=== PATIENT | female | born 1980 | race Caucasian/White ===

== ENCOUNTER 2022-11-17 05:13 | Inpatient (IN) ==
--- NOTE | 2022-11-13 10:18 | Anesthesiology Consultation ---
Date of Service November 13, 2022 Assessment & Plan (1) Encounter for pre-operative examination: Plan - COVID screening: Per clinical assessment manager on 11/13/2022: Travel screen negative, no known COVID-19 positive contacts or current COVID-19 related symptoms in past 2 weeks. To surgeon's discretion if preop COVID testing is needed. 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 History Surgery Operation Date: 11/17/22 09:00 Proposed Procedures p Section in LD (Delivery of Baby Through Abdominal Incision) - Lory Bonilla MD, FACOG s Bilateral Tubal Ligation - Lory Bonilla MD, FACOG Height/Weight Height: 5 ft 7 in Weight: 95.254 kg Allergies Allergy/AdvReac Type Severity Reaction Status Date / Time azithromycin Allergy Intermediate Rash Verified 11/13/22 09:48 Cipro Allergy Intermediate rash Verified 08/28/15 05:02 ciprofloxacin Allergy Intermediate rash Verified 11/13/22 09:48 Penicillins Allergy Intermediate rash Verified 11/13/22 09:48 Sulfa (Sulfonamide Allergy Intermediate SHORTNESS Verified 11/13/22 09:48 Antibiotics) OF BREATH Medications Home Medications Medication Instructions Recorded Confirmed Last Taken adalimumab 40 mg/0.8 mL See Rx Instructions subcut .COMPLEX 12/07/20 11/13/22 10/23/22 subcutaneous syringe kit (Humira) montelukast 10 mg tablet 10 mg PO QPM 04/13/22 11/13/22 10/24/22 (Singulair) prenat.vits,alli,[id number]-[id number] 1 tab PO QPM 04/18/22 11/13/22 10/24/22 aspirin 81 mg tablet,delayed 81 mg PO QPM 10/25/22 11/13/22 10/24/22 release levothyroxine 75 mcg tablet 75 mcg PO QPM 10/25/22 11/13/22 10/24/22 Past Medical History Medical History (Updated 11/13/22 @ 10:17 by Breanna Houston PA-C) Anxiety Exercise-induced asthma History of pre-eclampsia Hypothyroidism Pre-eclampsia in third trimester Psoriatic arthritis Rheumatoid arthritis noted in OB 11/08 records Past Family History Family History Mother H/O uterine leiomyoma Hypertension Grandmother (Maternal) H/O uterine leiomyoma Hypertension Grandfather (Paternal) Prostate cancer Colorectal cancer Brother Hypertension Denies family history of Ovarian cancer Breast cancer Past Surgical History Surgical History H/O colposcopy with cervical biopsy 2005 H/O myomectomy open S/P Social History Smoking Status: Never smoker Do You Dip or Chew Tobacco: No Hx Alcohol Use: No Hx Substance Use: No substance use type: does not use Lab Results Anesthesia Preop Results Results Anesthesia Widget: WBC 12.18 K/ul (4.8-10.8) H 10/05/22 Hgb 12.2 g/dl (12.0-16.0) 10/05/22 Hct 35.0 % (37.0-47.0) L 10/05/22 Plt 241 K/uL (130-400) 10/05/22 Na 136 mmol/L (136-145) 10/05/22 K 3.8 mmol/L (3.5-5.1) 10/05/22 Cl 106 mmol/L (98-107) 10/05/22 CO2 24 mmol/L (21-32) 10/05/22 BUN 3 mg/dl (6-23) L 10/05/22 Creat 0.60 mg/dl (0.6-1.2) 10/05/22 Glucose Level 85 mg/dl (70-99(Fasting)) 10/05/22 TSH 2.157 uIu/ml (0.300-4.500) 10/26/22
--- NOTE | 2022-11-16 15:41 | History & Physical Report ---
Date of Service November 16, 2022 Assessment & Plan (1) Supervision of elderly multigravida: Plan: Patient is a 42-year-old multiparous female who presents for repeat section because of prior myomectomy at 37 weeks gestation. She is requesting permanent sterilization with her section. Bilateral salpingectomy will be performed. The procedures and the risks were reviewed with the patient and her and all the questions were answered to their satisfaction and they are willing to proceed. History of Present Illness Primary Care Provider: Dimple Ruiz Patient is a 42-year-old 7 para 1-0-5-1 female who presents at 37 weeks for repeat section. Her first section was done at 36 weeks for severe preeclampsia and history of prior myomectomy requiring section for delivery. She is now presenting for repeat section at 37 weeks. 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 testing has been reassuring blood pressure has been normal during this . Patient is also requesting permanent sterilization and will undergo a bilateral salpingectomy with a section. Allergies Allergy/AdvReac Type Severity Reaction Status Date / Time azithromycin Allergy Intermediate Rash Verified 11/16/22 08:20 Cipro Allergy Intermediate rash Verified 08/28/15 05:02 ciprofloxacin Allergy Intermediate rash Verified 11/16/22 08:20 Penicillins Allergy Intermediate rash Verified 11/16/22 08:20 Sulfa (Sulfonamide Allergy Intermediate SHORTNESS Verified 11/16/22 08:20 Antibiotics) OF BREATH Home Medications Medication Instructions Recorded Confirmed Type adalimumab 40 mg/0.8 mL See Rx Instructions subcut .COMPLEX 12/07/20 11/16/22 History subcutaneous syringe kit (Humira) montelukast 10 mg tablet 10 mg PO QPM 04/13/22 11/16/22 History (Singulair) prenat.vits,alli,iuw-kvzf-[id number] 1 tab PO QPM 04/18/22 11/16/22 History aspirin 81 mg tablet,delayed 81 mg PO QPM 10/25/22 11/16/22 History release levothyroxine 75 mcg tablet 75 mcg PO QPM 10/25/22 11/16/22 History Patient History Medical History (Updated 11/13/22 @ 10:17 by Breanna Houston PA-C) Anxiety Exercise-induced asthma History of pre-eclampsia Hypothyroidism Pre-eclampsia in third trimester Psoriatic arthritis Rheumatoid arthritis noted in OB 11/08 records Surgical History H/O colposcopy with cervical biopsy 2005 H/O myomectomy open S/P Family History Mother H/O uterine leiomyoma Hypertension Grandmother (Maternal) H/O uterine leiomyoma Hypertension Grandfather (Paternal) Prostate cancer Colorectal cancer Brother Hypertension Denies family history of Ovarian cancer Breast cancer Social History Smoking Status: Never smoker Second Hand Exposure: No; Do You Dip or Chew Tobacco: No; Hx Alcohol Use: No Hx Substance Use: No Preferred Language: Kyrgyz Communication Ability: Effective Streetcar Operator Required: No Beliefs That Will Affect Care: None marital status: Single marital status details: Jones (44) [phone] Current Living Situation: Significant Other Current Living Situation Comment: lives with fob, daughter, 2 dogs, 1 cat, fob to change litter. 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 Feels Safe at Home: Yes Assistive Devices: Contacts and Glasses Review of Systems All systems reviewed & are unremarkable except as noted in HPI & below Physical Exam Constitutional: WD/WN, vitals as above Respiratory: normal respiratory effort, lungs clear to auscultation Cardiovascular: RRR, no murmur, no edema Chest (Breasts): normal inspection/palpation of breasts Psychiatric: A+Ox3, euthymic affect Genitourinary: OB Exam Abdomen: + vertex, + estimated weight (6-7 pounds) and + irregular contractions OB Exam Monitor Tracing: + external FHT monitor used, + external uterine monitor used, + category I and + normal FHT variability Coding Level of Care Code None Diagnoses Supervision of elderly multigravida O09.120
[2022-11-17] MEDS ORDERED: LACTATED RINGER'S 1,000 ML IV SCH ×2 (05:30→09:15)
[2022-11-17] MEDS ORDERED: CITRIC ACID/SODIUM CITRATE 15 ML UDC PO SCH (06:00)
[2022-11-17] MEDS ORDERED: ceFAZolin 2000MG 2,000 MG/15 ML SYR IV SCH (06:00)
[2022-11-17 06:08] LABS: Basophils # (auto) 0.03 K/uL (0-0.2); Basophils % (auto) 0.2 %; Eosinophils # (auto) 0.08 K/uL (0-0.50); Eosinophils % (auto) 0.6 %; Hematocrit (blood only) 35.8 % (37.0-47.0); Hemoglobin 12.4 g/dl (12.0-16.0); Immature Granulocytes # (auto) 0.12 K/uL (0.01-0.20); Immature Granulocytes % (auto) 0.8 %; Lymphocytes # (auto) 2.47 K/uL (1.2-3.4); Lymphocytes % (auto) 17.2 %; Mean Corpuscular Hemoglobin 29.6 pg (25.0-34.0); Mean Corpuscular Hgb Conc 34.6 g/dL (32.0-36.0); Mean Corpuscular Volume 85.4 fL (80.0-100.0); Mean Platelet Volume 11.6 fL (9.4-12.4); Monocytes # (auto) 0.81 K/uL (0.11-0.59); Monocytes % (auto) 5.7 %; Neutrophils # (auto) 10.81 K/uL (1.40-6.50); Neutrophils % (auto) 75.5 %; Platelet Count 248 K/uL (130-400); RDW Coefficient of Variation 13.2 % (11.5-14.5); Red Blood Count 4.19 M/uL (4.20-5.40); White Blood Count 14.32 K/ul (4.8-10.8)
[2022-11-17] MEDS ORDERED: MoRPHine SULFATE PF 1 MG/ML 10 ML AMP/VIAL ONE (07:33)
--- NOTE | 2022-11-17 07:33 | History & Physical Bridge Note ---
Date of Service November 17, 2022 History & Physical Bridge Note I have examined the patient, reviewed the History & Physical and in the interval since the performance of the History & Physical I have noted the following changes of clinical significance: no changes noted
[2022-11-17] MEDS ORDERED: MIDAZOLAM HCL 1 MG/ML 2ML VIAL ONE (08:02)
[2022-11-17] MEDS ORDERED: fentaNYL citrate PF 100 MCG/2 ML VIAL ONE (08:02)
[2022-11-17] MEDS ORDERED: PHENYLEPHRINE 100MCG/ML 5ML SYR ONE (08:16)
[2022-11-17] MEDS ORDERED: KETOROLAC 30 MG/ML VIAL ONE (08:16)
[2022-11-17] MEDS ORDERED: ONDANSETRON INJ 2 MG/ML 2 ML VIAL ONE (08:16)
--- NOTE | 2022-11-17 08:58 | Post Operative Brief Note ---
PG Immediate Post Op with CF Date of Surgery November 17, 2022 Pre & Post Diagnosis Operation Date: 11/17/22 07:30 Pre-Op Diagnosis: 1. Repeat section 2. Prior Myomectomy 3. Request for permanent sterilization 4. Bilateral salpingectomy Post-Op Diagnosis: Same I identified the patient and participated in the time-out.: Yes Procedure Operation Date: 11/17/22 07:30 Actual Procedures p Section in LD (Delivery of Baby Through Abdominal Incision) with the of a live female child at 0759. - Lory Bonilla MD, FACOG s Bilateral Tubal Ligation - Lory Bonilla MD, FACOG Surgeon Lory Bonilla MD, FACOG Ctc Operator Floresita No DO Estimated Blood Loss 600 Findings Consistent with Post-Op Diagnosis Specimens Specimen Description: A: Placenta-exam B: Cord Blood C: Right fallopian tube D: Left fallopian tube Drains Roberts Catheter (roberts cath placed after spinal; clear yellow urine noted upon insertion. ) Anesthesia Type Spinal Complications none Disposition Accompanied Patient To Recovery: Yes
[2022-11-17] MEDS ORDERED: ONDANSETRON INJ 2 MG/ML 2 ML VIAL IV PRN ×2 (09:04→09:09)
[2022-11-17] MEDS ORDERED: DIPHTHERIA/TETANUS/PERTUSSIS Vaccine (Tdap, Age 7+yrs) 0.5mL SYR/VL IM ONE (09:04)
[2022-11-17] MEDS ORDERED: SENNA 8.6 MG TAB PO PRN (09:04)
[2022-11-17] MEDS ORDERED: MAGNESIUM HYDROXIDE SUSP 30 ML UDC PO PRN (09:04)
[2022-11-17] MEDS ORDERED: BENZOCAINE 20% AER SPR 82.5 GM CAN EXT PRN (09:04)
[2022-11-17] MEDS ORDERED: HYDROCORTISONE ACETATE 25 MG SUPP PR PRN (09:04)
[2022-11-17] MEDS ORDERED: MoRPHine SULFATE 2 MG/ML CARP IV PRN (09:09)
[2022-11-17] MEDS ORDERED: NALBUPHINE HCL INJ 10 MG/ML AMP IV PRN (09:09)
[2022-11-17] MEDS ORDERED: MoRPHine SULFATE PF 1 MG/ML 10 ML AMP/VIAL INT SPINAL ONE (09:09)
[2022-11-17] MEDS ORDERED: HYDROmorphone INJ 0.5 MG/0.5 ML SYR IV PRN (09:09)
[2022-11-17] MEDS ORDERED: diphenhydrAMINE 50 MG/ML VIAL IV PRN (09:09)
[2022-11-17] MEDS ORDERED: NALOXONE HCL 1 MG in SODIUM CHLORIDE 0.9% 1000ML 1,000 ML IV PRN (09:09)
[2022-11-17] MEDS ORDERED: LACTATED RINGER'S 500 ML IV PRN (09:09)
[2022-11-17] MEDS ORDERED: MEPERIDINE HCL 25 MG/ML CARP/VIAL IV PRN (09:09)
[2022-11-17] MEDS ORDERED: NALOXONE HCL 0.08 MG in SYRINGE 1.8 ML IV PRN (09:09)
[2022-11-17] MEDS ORDERED: NALOXONE HCL 0.4 MG/1 ML VIAL/CARP IV PRN (09:09)
[2022-11-17] MEDS ORDERED: ePHEDrine sulfate 50 MG/ML AMP IV PRN (09:09)
[2022-11-17] MEDS ORDERED: PROMETHAZINE HCL 6.25 MG in SODIUM CHLORIDE 0.9% 50 ML IV PRN (09:09)
[2022-11-17] MEDS ORDERED: SODIUM CHLORIDE 0.9% 1000ML 1,000 ML IV SCH (09:15)
[2022-11-17] MEDS ORDERED: DC INTRASPINAL MORPHINE SCH (09:15)
[2022-11-17] MEDS ORDERED: NO NARCOTICS OR SEDATIVES SCH (09:15)
--- NOTE | 2022-11-17 09:21 | Anesthesiology Progress Note ---
Date of Service November 17, 2022 Anesthesia Post Procedure Vital Signs Vital Signs: Temp Pulse Resp BP Pulse Ox 11/17/22 09:20 92 H 100 11/17/22 09:15 95 H 100 11/17/22 09:14 95 H 114/69 11/17/22 09:10 98 H 100 11/17/22 09:05 96 H 100 11/17/22 09:03 90 122/76 11/17/22 09:00 96 H 100 11/17/22 05:50 107 H 124/90 11/17/22 05:42 37.1 C 18 Transfer of Care Handoff Completed per policy Notes Mental Status: alert / awake / arousable Nausea / Vomiting: adequately controlled Pain: adequately controlled Airway Patency, RR, SpO2: stable & adequate BP & HR: stable & adequate Hydration State: stable & adequate Neuraxial Anesthesia: was administered and sensory block is resolving Anesthetic Complications: no major complications apparent and Pt Satisfied with anesthetic care
--- NOTE | 2022-11-17 09:29 | Operative Report ---
PG Post Operative Report Pre & Post Diagnosis Operation Date: 11/17/22 07:30 Pre-Op Diagnosis: 1. Repeat section 2. Prior Myomectomy 3. Request for permanent sterilization 4. Bilateral salpingectomy Post-Op Diagnosis: Same I identified the patient and participated in the time-out.: Yes Procedure Operation Date: 11/17/22 07:30 Actual Procedures p Section in LD (Delivery of Baby Through Abdominal Incision) with the of a live female child at 0759. - Lory Bonilla MD, FACOG s Bilateral Tubal Ligation - Lory Bonilla MD, FACOG Surgeon Lory Bonilla MD, FACOG Drug Abuse Program Coordinator Floresita No DO Estimated Blood Loss 600 Findings Consistent with Post-Op Diagnosis Bilateral ovaries and fallopian tubes were grossly normal. Uterus was gravid and consistent with a term in size. There is no evidence of uterine fibroids. Specimens placenta to exam - history of vanishing twin at 10 weeks Drains Mitchell to straight drainage- clear urine at end of the case Anesthesia Type Spinal Complications none Disposition Accompanied Patient To Recovery: Yes Indications Patient is a 42-year-old 7 para 1-0-5-1 who presents at 39+ weeks for repeat section and bilateral salpingectomy. Her first section was done because of severe preeclampsia and prior myomectomy. Patient is requesting permanent sterilization because of normal to parity and unwanted fertility. Description of Procedure After the patient received adequate subarachnoid block she was prepped and draped in usual sterile fashion. A low transverse skin incision was made with a scalpel, and carried to the fascia with the same scalpel. The fascial incision was then extended transversely with Parkinson scissors. The edges of the fascia were then grasped with Dedrick clamps and the underlying rectus muscles bluntly sharply dissected off of the overlying fascia. The rectus muscles were then bluntly divided along the midline, and the underlying peritoneum elevated and entered sharply with Metzenbaum scissors. The bladder was then taken down off the anterior surface of the uterus and placed behind the bladder blade. The lower uterine segment was then entered with a scalpel to the level of the membranes which were ruptured for clear fluid. The incision was then extended transversely. The was taken out of the pelvis and the vertex presentation with the assistance of the vacuum to deliver the head through the uterine incision. Moderate fundal pressure was also used to facilitate delivery of the head and then the shoulders. The rest of the infant then delivered easily and was vigorous crying and moving all 4 limbs. The cord was then clamped and cut, and the female infant handed off to Dr. Rosario who was in attendance as dry lumber grader. The placenta was then expressed intact with a three-vessel cord. After cord blood was obtained. The uterus was then exteriorized and covered a clean lap sponge. Uterine cavity was then explored and found to be free of any retained tissue or membranes. The uterus was then closed in 2 layers in a running locking imbricating fashion with 0 Monocryl. Hemostasis was noted to be excellent. Attention was then turned to the tubal. The LigaSure device was used to remove the right fallopian tube to the level of the cornua. The left fallopian tube was then also removed with the LigaSure device to the level of the cornua. Hemostasis was noted to be excellent bilater ally. After irrigating the posterior cul-de-sac for small amount of blood, the uterus was then gently placed back in the abdominal cavity. Bleeding along the bladder flap was secured with the Bovie. The gutters were explored and found to be free of any clot or fluid. The salpingectomy sites were reexamined and continue to have excellent hemostasis. The rectus muscle brought together on the midline with individual stitches of 0 Monocryl. The fascia was then closed in a running fashion with 0 Vicryl. After irrigating the subcutaneous layer, the skin edges were reapproximated using a subcuticular stitch of 3-0 Vicryl. Urine was clear at the end of the case mother and infant were doing well after delivery. I attest to the content of the Intraoperative Record and any orders documented therein. Any exceptions are noted below. OB Procedure Charges [id number] Add on Tubal for C/S
[2022-11-17] MEDS: SIMETHICONE 80 MG CHEW PO SCH ×3 (14:14→21:00)
[2022-11-17] MEDS: KETOROLAC 30 MG/ML VIAL IV PRN (15:29)
[2022-11-17] MEDS: OXYTOCIN 20 UNITS in LACTATED RINGER'S 1,000 ML IV SCH (15:43)
[2022-11-17] MEDS: DOCUSATE SODIUM 100 MG CAP PO SCH (21:01)
[2022-11-17] MEDS: LEVOTHYROXINE SODIUM 75 MCG TABLET PO SCH (21:01)
[2022-11-17] MEDS: MONTELUKAST SODIUM 10 MG TABLET PO SCH (21:01)
[2022-11-18] MEDS: OXYTOCIN 20 UNITS in LACTATED RINGER'S 1,000 ML IV SCH (00:15)
[2022-11-18] MEDS: KETOROLAC 30 MG/ML VIAL IV PRN (00:23)
[2022-11-18] MEDS ORDERED: diphenhydrAMINE 50 MG/ML VIAL IV PRN (03:10)
[2022-11-18] MEDS ORDERED: KETOROLAC 30 MG/ML VIAL IV PRN (03:10)
[2022-11-18] MEDS ORDERED: diphenhydrAMINE Capsule 25 MG CAP PO PRN (03:10)
[2022-11-18] MEDS ORDERED: MEPERIDINE HCL 50 MG/ML CARP IV PRN (03:10)
[2022-11-18] MEDS ORDERED: oxyCODONE/ACETAMINOPHEN 5mg/325mg TAB PO PRN (03:10)
[2022-11-18] MEDS ORDERED: ZOLPIDEM TARTRATE 5 MG TAB PO PRN (03:10)
[2022-11-18] MEDS ORDERED: PROMETHAZINE HCL 25 MG in SODIUM CHLORIDE 0.9% 50 ML IV PRN (03:10)
[2022-11-18 06:48] LABS: Basophils # (auto) 0.04 K/uL (0-0.2); Basophils % (auto) 0.3 %; Eosinophils # (auto) 0.24 K/uL (0-0.50); Eosinophils % (auto) 1.7 %; Hematocrit (blood only) 34.1 % (37.0-47.0); Hemoglobin 11.6 g/dl (12.0-16.0); Immature Granulocytes # (auto) 0.09 K/uL (0.01-0.20); Immature Granulocytes % (auto) 0.6 %; Lymphocytes # (auto) 1.98 K/uL (1.2-3.4); Lymphocytes % (auto) 13.9 %; Mean Corpuscular Hemoglobin 29.7 pg (25.0-34.0); Mean Corpuscular Volume 87.4 fL (80.0-100.0); Mean Platelet Volume 11.5 fL (9.4-12.4); Monocytes # (auto) 0.89 K/uL (0.11-0.59); Monocytes % (auto) 6.2 %; Neutrophils # (auto) 11.02 K/uL (1.40-6.50); Neutrophils % (auto) 77.3 %; Platelet Count 223 K/uL (130-400); RDW Coefficient of Variation 13.3 % (11.5-14.5); RDW Standard Deviation 41.1 fL (36.4-46.3); White Blood Count 14.26 K/ul (4.8-10.8)
--- NOTE | 2022-11-18 07:07 | Obstetrical Progress Note ---
Date of Service November 18, 2022 Assessment & Plan (1) examination following delivery: Plan stable, routine care. ok to give regular diet. hgb stable. ambulate. already voiding. bottle, rhpos, ri. Day #:: 1 Subjective Ambulation: ambulating normally Voiding: no voiding problems Passing Gas:: No Diet Tolerance:: clear liquids Lochia:: Small Feeding Type:: bottle feeding denies pain issues. using ice mostly. no n/v, wants to eat regular food. Constitutional: + as per Subjective / HPI Physical Exam Constitutional WD/WN, vitals as above Respiratory normal respiratory effort, lungs clear to auscultation Cardiovascular Rate/Rhythm: regular rate and regular rhythm Gastrointestinal (Abdomen) Inspection/Auscultation: abdomen normal to inspection and + abdominal surgical incision (c/d/i dermabond) Percussion/Palpation: abdomen soft Fundus firm 2cm down Musculoskeletal nt calves tr edema Neurologic grossly normal Psychiatric A+Ox3, euthymic affect Results & Data Vital Signs (Past 12 Hours) Vital Signs Temp Pulse Resp BP Pulse Ox O2 Del Method 11/18/22 03:30 98.4 F 70 18 109/78 97 Room Air 11/18/22 02:30 16 96 11/17/22 23:00 16 97 11/18/22 01:35 16 98 11/18/22 00:00 98.4 F 68 16 101/67 98 Room Air 11/18/22 00:00 16 97 11/18/22 00:00 Room Air 11/17/22 19:20 16 98 11/17/22 22:00 18 99 11/17/22 21:00 16 100 11/17/22 20:00 97.7 F 79 18 127/83 98 Room Air 11/17/22 20:00 18 98 11/17/22 20:00 Room Air
[2022-11-18] MEDS: SIMETHICONE 80 MG CHEW PO SCH ×4 (09:05→20:35)
[2022-11-18] MEDS: PRENATAL VITAMIN 1 TAB PO SCH (09:05)
[2022-11-18] MEDS: DOCUSATE SODIUM 100 MG CAP PO SCH ×2 (09:05→20:35)
[2022-11-18] MEDS: FERROUS SULFATE 325 MG TAB PO SCH (09:05)
[2022-11-18] MEDS: IBUPROFEN 600 MG TAB PO PRN ×3 (09:05→20:35)
[2022-11-18] MEDS ORDERED: ACETAMINOPHEN 325 MG TAB ONE (15:47)
[2022-11-18] MEDS: ACETAMINOPHEN 325 MG TAB PO PRN ×2 (15:48→23:53)
[2022-11-18] MEDS ORDERED: bisacodyL 5 MG TABEC PO SCH (20:00)
[2022-11-18] MEDS: LEVOTHYROXINE SODIUM 75 MCG TABLET PO SCH (20:40)
[2022-11-18] MEDS: MONTELUKAST SODIUM 10 MG TABLET PO SCH (20:40)
[2022-11-19] MEDS: IBUPROFEN 600 MG TAB PO PRN (06:01)
[2022-11-19 06:31] LABS: Hemoglobin 10.3 g/dl (12.0-16.0)
[2022-11-19] MEDS: PRENATAL VITAMIN 1 TAB PO SCH (07:20)
[2022-11-19] MEDS: FERROUS SULFATE 325 MG TAB PO SCH (07:21)
[2022-11-19] MEDS: DOCUSATE SODIUM 100 MG CAP PO SCH (07:21)
[2022-11-19] MEDS: SIMETHICONE 80 MG CHEW PO SCH (07:21)
--- NOTE | 2022-11-19 08:31 | Obstetrical Progress Note ---
Date of Service November 19, 2022 Assessment & Plan (1) examination following delivery: satisfactory post-op recovery will discharge today wit follow up BP check this week script for 600mg motrin sent to pharmacy Subjective Ambulation: ambulating normally Voiding: no voiding problems Passing Gas:: Yes Diet Tolerance:: regular diet Lochia:: Small Feeding Type:: bottle feeding burning on right side of incision. taking both tylenol and motrin helps along with ice. otherwise doing well. No PIH symptoms Review of Systems All systems reviewed & are unremarkable except as noted in HPI & below Physical Exam Constitutional WD/WN, vitals as above Gastrointestinal (Abdomen) Inspection/Auscultation: + abdominal surgical incision (dry and intact with ecchymosis lateral to right side of incision. ) Psychiatric A+Ox3, euthymic affect Genitourinary OB Exam Abdomen: + fundal height Fundus: + firm and + relation to umbilicus (2 below U) Results & Data Vital Signs (Past 12 Hours) Vital Signs Temp Pulse Resp BP Pulse Ox O2 Del Method 11/19/22 07:24 98.1 F 74 16 111/75 98 Room Air 11/18/22 23:40 98.1 F 89 16 97/63 L 98 Room Air
[2022-11-19] MEDS ORDERED: bisacodyL 10 MG SUPP PR PRN (09:04)
--- NOTE | 2022-11-19 19:38 | Discharge Summary ---
Date of Service November 19, 2022 Admission HPI Per Admitting Provider Patient is a 42-year-old 7 para 1-0-5-1 female who presents at 37 weeks for repeat section. Her first section was done at 36 weeks for severe preeclampsia and history of prior myomectomy requiring section for delivery. She is now presenting for repeat section at 37 weeks. 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 testing has been reassuring blood pressure has been normal during this . Patient is also requesting permanent sterilization and will undergo a bilateral salpingectomy with a section. Admission Exam (Per Admitting) Constitutional WD/WN, vitals as above Respiratory normal respiratory effort, lungs clear to auscultation Cardiovascular RRR, no murmur, no edema Chest (Breasts) normal inspection/palpation of breasts Gastrointestinal (Abdomen) Inspection/Auscultation: + abdominal surgical incision (dry and intact with ecchymosis lateral to right side of incision. ) Psychiatric A+Ox3, euthymic affect Genitourinary OB Exam Abdomen: + fundal height, + vertex, + estimated weight (6-7 pounds) and + irregular contractions OB Exam Monitor Tracing: + external FHT monitor used, + external uterine monitor used, + category I and + normal FHT variability Discharge Data Consultations 11/17/22 05:28 Consult Anesthesiology Stat Procedures Performed Operation Date: 11/17/22 07:30 Actual Procedures p Section in LD (Delivery of Baby Through Abdominal Incision) with the of a live female child at 0759. - Lory Bonilla MD, FACOG s Bilateral Tubal Ligation - Lory Bonilla MD, FACOG Hospital Course (1) examination following delivery: Plan Patient underwent a repeat low-transverse section with bilateral salpingectomies without any complications. She was eating regular diet on her first postop day ambulating and voiding without difficulty as well. Pain was well-controlled with oral Motrin and Tylenol. Blood pressure remained normotensive throughout her hospital stay. She was sent home in good condition with a prescription for Motrin 600 mg p.o. every 6 hours as needed pain. Patient is requesting a blood pressure check in several days as she has severe preeclampsia with her last . She is to call for any symptoms of preeclampsia. She is also to call for temperature of 101 degrees or higher, heavy vaginal bleeding, burning or pain with urination ,heavy vaginal bleeding, increased redness or drainage of her incision, calf tenderness or any other concerns. The office will contact her for follow-up blood pressure check this week. Discharge Plan Discharge Items Patient Disposition: Home - Self-Care Reason For Visit: History of Section Discharge Diagnosis: recovery from C/S Activity: Per Instructions section Non-emergency contact: [employer] Call non-emergency contact if: your pain is not controlled, your pain is unusual for you, your temperature is above 101.5, your wound has increased redness and your wound has increased drainage Follow-up/Referrals: Dimple Ruiz D.O. [Primary Care Provider] - Diet: Regular Addtl Attending Provider Instructions: ACTIVITY RECOMMENDATIONS: * Gradual return to full activity over the next 2-3 weeks. * No lifting - nothing heavier than baby over the next 2-3 weeks. * Do not engage in vigorous exercise, sexual activity or sports until cleared by your physician. * Do not drive or operate any motorized equipment until cleared by your physician. * You may shower/bathe daily. MEDICATIONS: For discomfort or pain, you may use Acetaminophen (Tylenol), Ibuprofen (Advil), or Naproxen (Aleve) following the package directions. For constipation you may use Colace following the package directions. BREAST CARE: If you are not breast feeding: * Wear a supportive bra 24 hours a day for one to two weeks. * Avoid stimulating your breasts and nipples as much as possible during the first few weeks after delivery. * When taking a shower, have the warm water hit your back, not breasts. * When your breasts feel full, apply ice packs. Usually three to four times a day helps ease the discomfort. * Take a mild pain medication (Tylenol / Motrin) when you are uncomfortable. If breast feeding: * Use breast milk to lubricate nipples. Lansinoh cream may be used for sore nipples. You do not need to remove cream prior to breast feeding. If using a different brand of cream, check the label for directions regarding removal of cream prior to nursing. * Wear a supportive bra. * If having problems with breasts or breast feeding, call a client consultant or your health care provider. SPECIAL CARE INSTRUCTIONS: When you are discharged from the hospital, it is important for you to follow the instructions listed below: * During the first week at home, you should be able to care for yourself and your baby. In addition, the usual light household activities are encouraged. * Limit your activities to the way you feel. Do not try to clean the house or move furniture. Be sensible. * If you actively engage in sports and have done so up until the time of your delivery, you may resume these activities as soon as you feel able. This may take up to one month or even longer. Use good judgment. * Continue to take your vitamins for at least six weeks after the of your baby. * Your diet need not be limited unless you were on a special diet before your delivery. Breast-feeding mothers need around 2500 calories per day and at least 64-80 ounces of fluid per day (8 to 10 glasses). * You should eat foods from the four major food groups. Crash diets or fad diets are to be avoided. Eating lean meats, fresh fruits and vegetables, low-fat dairy products, high fiber foods and a regular exercise program, will help you get back to your pre- weight without putting your health at risk. * Constipation is sometimes a problem after delivery. Take a mild laxative as needed. If breast feeding, Milk of Magnesia is acceptable to use. You may use a suppository or Fleets enema. * A daily shower or tub bath is suggested. Wash incision daily with warm soapy water and pat dry. It doesn't need to be covered unless drainage is pre sent. * A bloody vaginal discharge will usually continue until around four weeks . A small amount of bleeding may continue for as long as six weeks. Vaginal discharge changes from the bright red bleeding after delivery to pink then brownish and finally yellowish-pink before becoming white and disappearing. * Bleeding may increase with activity. Your first period may come in 4-8 weeks. If you are breast feeding, your period may be delayed even longer. * Joes (sex) can begin whenever both you and your partner feel comfortable and do not have any form of genital infection. It is recommended that you wait at least six weeks for internal and external healing to occur. If you have questions, please talk to your health care practitioner. A condom should be used to prevent infection and . * Foreplay, gentle intercourse and lubrication is very important the first several times to prevent pain. A water-based lubricant such as K-Y jelly or Astroglide may be used. * If you have RH negative blood and your baby is RH positive, you will receive RHOGAM by injection prior to discharge. The nurse will give you a card to keep with you that has the date and place that you received RHOGAM after delivery. * During your care, you had a Rubella screen done to check for the presence of rubella antibodies in your blood. If your test was negative, you will receive a Rubella vaccine prior to discharge. This vaccine may cause a fever, soreness at the injection site and flu-like symptoms. If these symptoms persist, notify your health care practitioner. is not advised for one month after a Rubella vaccine. * Verbalizes understanding of car seat law as reviewed with patient nursing. * Car Seat hand-out given and reviewed with patient by nursing. * Shaken baby information reviewed with patient by nursing. Call you doctor if: * Heavy bleeding (saturating several pads an hour) or passing clots the size of your fist. * A fever >101 degrees F (38.3 degrees C) on two occasions four hours apart and/or chills. * Unusual pain in the pelvic or vaginal areas. * Call the doctor for any increased redness, drainage or swelling around the incision and any pain unrelieved by prescribed pain medication. * "Baby Blues" lasting longer than two weeks. If you have any questions or concerns, call your health care practitioner at . FOLLOW UP VISIT: * Please call the office at to schedule a 6 week examination. It is important you keep this appointment. It is important for you to make arrangements for either yearly or twice yearly check-ups thereafter. * The office will call you to set up a blood pressure check to be done this week. Pending Studies at Discharge: Yes Studies:: path report on placenta and fallopian tubes Stand-Alone Forms: My [employer], Smoking Cessation Medications and DC Order Prescriptions: New ibuprofen 600 mg tablet 600 mg PO Q6H PRN (Reason: pain) Qty: 60 1RF Continued Humira 40 mg/0.8 mL syringe kit See Rx Instructions subcut .COMPLEX Rx Instructions: inject one - 40 mg/0.8 mL syringe every 2 weeks subcut montelukast [Singulair] 10 mg tablet 10 mg PO QPM prenat.vits,alli,eyx-incc-bqphn Tablet 1 tab PO QPM levothyroxine 75 mcg Tablet 75 mcg PO QPM Discontinued aspirin [Aspir-81] 81 mg Tablet,Delayed Release (Dr/Ec) 81 mg PO QPM Discharge Orders: Discharge Order (Routine); Ordered 11/19/22 Ordered By: Lory Dalton/Other Patient Handouts: Understanding Deep Vein Thrombosis, Depression Admission Data Admit Date/Time: 11/17/22 05:13 Attending Provider: Lory Bonilla Admit Provider: Lory Bonilla Primary Care Provider: Dimple Ruiz Other Providers: Silvestre An Other Interventions: Discharge Summary Assessment (RN) Last Done: 11/19/22 08:54 Coding Level of Care Code 09961 IN/OBS DISCH 30 MIN/LESS Diagnoses examination following delivery Z39.2
== END 2022-11-19 10:01 | disposition home or self-care (01) | DRG 785 ==
LOC: 4S1 05:13 → EDSTATUS 09:00 → 4E2 14:37
PROC: M.PPTLD (2022-11-17 07:30)